=== PATIENT | male | born 1980 | race Caucasian/White ===

== ENCOUNTER 2016-09-04 10:04 | Emergency (ER) | payer BC, OTHER ==
[~2016-09-04] VITALS: Ht 177.8 cm; Wt 128.8 kg
[~2016-09-04 10:04] MED LIST: ALBU2.5V7 AEROSOL; AZIT250T6 PO; CEFT1FRO3 IV; HYDR-4074 PO; HYDR2VIA2 IV; ONDA4VIA23 IV
[2016-09-04 10:07] VITALS: Ht 177.8 cm; Wt 128.8 kg
--- OUTSIDE RECORDS SUMMARY | 2016-09-04 10:08 | XMS REPORT | Referral Summary ---
Author Author [facility] Organization [facility] Address Unknown Phone Unavailable Care Team Providers Care Golf Ball Marker Name Role Phone Camilla Geiger Primary Care Physician [phone] Encounter [facility] [id number] Date(s): 06/20/16 - 06/20/16 [facility] [address] [place] [address]- Discharge Diagnosis: Adult-onset obesity Discharge Diagnosis: Current smoker Discharge Diagnosis: CORRINA (generalized anxiety disorder) Discharge Diagnosis: Benign essential hypertension Discharge Diagnosis: Encounter for smoking cessation counseling Discharge Diagnosis: Snoring Discharge Disposition: 01-Home or Self Care Attending Physician: Rufino Geiger MD Admitting Physician: Rufino Geiger MD Vital Signs Most recent to 1 oldest [Reference Range]: Blood Pressure 170/90 mmHg [90-140/60-90 mmHg] *HI* (06/20/16 3:27 PM) Problem List Condition Effective Dates Status Health Status Informant Benign essential Active hypertension(Confirm ed) CORRINA (generalized Active anxiety disorder)(Confirmed) Morbid Active patient obesity(Confirmed) Current Active smoker(Confirmed) Snoring(Confirmed) Active Allergies, Adverse Reactions, Alerts Substance Reaction Severity Status PROzac Active Ritalin Active Medications Chantix Continuing Month 1 mg oral tablet 1 mg 1 tabs, Oral, BID, may start in 30 days, # 56 tabs, 1 Refill(s), Pharmacy: [id number], 1 tabs Oral BID,Instr:may start in 30 days Start Date: 06/20/16 Status: Ordered Chantix Starter Pack 0.5 mg-1 mg oral tablet 1 tabs, Oral, BID, as directed on package labeling, # 53 tabs, 0 Refill(s), Pharmacy: [facility] Start Date: 06/20/16 Status: Ordered hydroCHLOROthiazide 25 mg oral tablet 25 mg 1 tabs, Oral, Daily, # 30 tabs, 0 Refill(s), Pharmacy: [facility], 1 tabs Oral Daily Start Date: 06/20/16 Status: Ordered Results Hematology Most recent to 1 oldest [Reference Range]: WBC [4.8-10.8 8.6 10*3/uL 10*3/uL] (06/20/16 3:58 PM) RBC [4.60-6.20] 5.41 (06/20/16 3:58 PM) Hgb [14.0-18.0 16.1 gm/dL gm/dL] (06/20/16 3:58 PM) Hct [42.0-52.0 %] 48.2 % (06/20/16 3:58 PM) MCV [82.0-99.0 fL] 89.1 fL (06/20/16 3:58 PM) MCH [27.0-32.0 pg] 29.8 pg (06/20/16 3:58 PM) MCHC [32.0-36.0 33.4 gm/dL gm/dL] (06/20/16 3:58 PM) RDW [11.5-14.5 %] 13.2 % (06/20/16 3:58 PM) Platelet [150-400 248 10*3/uL 10*3/uL] (06/20/16 3:58 PM) MPV [8.8-14.8 fL] 10.9 fL (06/20/16 3:58 PM) Immature 0.2 % Granulocytes (06/20/16 3:58 PM) [0.0-1.0 %] Neutrophils [51-75 58 % %] (06/20/16 3:58 PM) Lymphocytes [20-46 29 % %] (06/20/16 3:58 PM) Monocytes [4-11 %] 9 % (06/20/16 3:58 PM) Eosinophils [0-4 %] 4 % (06/20/16 3:58 PM) Basophils [0-2 %] 1 % (06/20/16 3:58 PM) Neutro Absolute 4.98 [1.90-7.00] (06/20/16 3:58 PM) Lymph Absolute 2.49 [0.80-3.30] (06/20/16 3:58 PM) Larue Absolute 0.76 [0.30-1.00] (06/20/16 3:58 PM) Eos Absolute 0.31 [0.00-0.50] (06/20/16 3:58 PM) Baso Absolute 0.04 [0.00-0.20] (06/20/16 3:58 PM) Chemistry Most recent to 1 oldest [Reference Range]: Sodium Lvl [135-144 141 mEq/L mEq/L] (06/20/16 3:58 PM) Potassium Lvl 4.4 mEq/L [3.5-5.2 mEq/L] (06/20/16 3:58 PM) Chloride [99-111 103 mEq/L mEq/L] (06/20/16 3:58 PM) CO2 [23-31 mEq/L] 27 mEq/L (06/20/16 3:58 PM) AGAP [3-20] 11 (06/20/16 3:58 PM) BUN [9-21 mg/dL] 14 mg/dL (06/20/16 3:58 PM) Glucose Lvl [70-99 91 mg/dL mg/dL] (06/20/16 3:58 PM) Creatinine Lvl 1.13 mg/dL [0.72-1.25 mg/dL] (06/20/16 3:58 PM) eGFR [>60 mL/min] >60 mL/min 1 (06/20/16 3:58 PM) Calcium Lvl 9.7 mg/dL 2 [8.4-10.2 mg/dL] (06/20/16 3:58 PM) Albumin Lvl [3.5-5.0 4.0 gm/dL gm/dL] (06/20/16 3:58 PM) Total Protein 6.5 gm/dL [6.1-7.7 gm/dL] (06/20/16 3:58 PM) Globulin [1.8-4.0 2.5 gm/dL gm/dL] (06/20/16 3:58 PM) ALT [0-55 U/L] 36 U/L (06/20/16 3:58 PM) AST [5-34 U/L] 25 U/L (06/20/16 3:58 PM) Alk Phos [40-150 93 U/L U/L] (06/20/16 3:58 PM) Bili Total [0.2-1.2 0.3 mg/dL mg/dL] (06/20/16 3:58 PM) TSH with Reflex Free 1.15 T4 [0.35-4.94] (06/20/16 3:58 PM) 1Result Comment: Multiply eGFR results by 1.21 for race. 2Result Comment: Please note reference range change effective 06/17/2016. Immunizations No data available for this section Procedures No data available for this section Social History Social History Type Response Smoking Status Current every day smoker; Type: Cigarettes; Tobacco use per day: 1 Pack Assessment and Plan Extracted from: Title: Office Visit Note Author: Rufino Geiger MD Date: 06/20/16 Assessment/Plan Adult-onset obesity Diet and exercise as tolerated and feasible. Consider medication when interested. Benign essential hypertension HCTZ 25mg po daily. The patient had an elevated blood pressure reading and is to monitor their bp and call with a report if consistently > 140/90. Lab pending. RTC in 30 days or sooner prn. Ordered: CBC w/ Differential Comprehensive Metabolic Panel TSH with Reflex Free T4 Current smoker Samples of the new medication were provided as a courtesy. Side effects were discussed and follow up was recommended. Chantix starter kit discussed and voucher provided. Encounter for smoking cessation counseling See above. Ten minutes of counseling discussed. CORRINA (generalized anxiety disorder) We discussed several options for treatment for this condition. The patient declined any changes or other treatments at this time. Snoring To [facility] Sleep [facility] forevaluation. A work/school note was offered and deferred by the patient.
--- OUTSIDE RECORDS SUMMARY | 2016-09-04 10:08 | XMS REPORT | Continuity of Care Document ---
Author Author [facility] Organization [facility] Address Unknown Phone Unavailable Support Name Relationship Address Phone GEORGE GARCIA MD Caregiver [address] [place] [address] [place] [phone] NAMAN [employer]ODS Next Of Kin [address] [place] [address] Insurance Providers Payer Name Policy Number Subscriber Name Relationship [facility] [id number] Perez Alberts 18 Self Problems Medical Problems Problem Onset Date Status Sprain of medial collateral ligament of left knee Unknown Active Sprain of medial collateral ligament of left knee Unknown Active Medications Medication Dose Route Sig Days/Qty Instructions Order Date Discontinued Date Status [No Known Meds] 12/27/13 Active Diclofenac Sodium 1 Tab PO TWICE A DAY 30 Qty 12/27/13 Active Social History Social History Problem Response Recorded Date/Time Smoking Status Current every day smoker 12/27/2013 8:25am When did patient START smoking? SINCE AGE 14 12/27/2013 8:25am Hospital Discharge Instructions No hospital discharge instructions. Plan of Care No plan of care. Functional Status Query Response Date Recorded Physical Hygiene Self December 27, 2013 8:25am Disabilities None December 27, 2013 8:25am Devices Used None December 27, 2013 8:25am Dressing Self December 27, 2013 8:25am Ambulation Self December 27, 2013 8:25am Diet Self December 27, 2013 8:25am Mental Status Alert December 27, 2013 9:42am Disabilities None December 27, 2013 8:25am Devices Used None December 27, 2013 8:25am Physical Hygiene Self December 27, 2013 8:25am Dressing Self December 27, 2013 8:25am Ambulation Self December 27, 2013 8:25am Diet Self December 27, 2013 8:25am Allergies, Adverse Reactions, Alerts Allergen Type Severity Reaction Status Last Updated Fluoxetine Allergy Intermediate ARTHRITIS Active 12/27/13 Methylphenidate Allergy Severe LOSS OF LARGE MUSCLE CONTROL Active Immunizations No immunization records. Vital Signs Acute Vital Signs Vital Response Date/Time Temperature (Fahrenheit) 97.5 deg F (96.8 - 99.1) Temperature (Calculated Celsius) 36.72569 degrees C (36.0 - 37.3) Pulse Rate (adult) 83 bpm (60 - 100) Respiratory Rate 18 breaths/min (10 - 20) O2 Sat by Pulse Oximetry 96 % (90 - 100) Blood Pressure 161/85 mm Hg Height 5 ft 10 in Weight 296 lb Body Mass Index 42.0 kg/m^2 Results No known relevant diagnostic tests, laboratory data and/or discharge summary. Procedures No known history of procedures. Encounters Encounter Location Date/Time Departed Emergency Room [facility] 12/27/13 8:20am Recent Diagnosis
--- OUTSIDE RECORDS SUMMARY | 2016-09-04 10:08 | XMS REPORT | Continuity of Care Document ---
Author Author [facility] Organization [facility] Address Unknown Phone Unavailable Allergies Active Description Code Type Severity Reaction Onset Reported/Identified Relationship to Patient Clinical Status Yes fluoxetine fluoxetine Drug Allergy Unknown ARTHRITIS 07/29/2015 Yes methylphenidate methylphenidate Drug Allergy Unknown MUSCLE WEAKNESS 07/29/2015 Medications Problems Date Dx Coded Attending Type Code Diagnosis Diagnosed By 07/29/2015 David Campbell MD D72.829 ELEVATED WHITE BLOOD CELL COUNT, UNSPECIFIED 07/29/2015 David Campbell MD E66.9 OBESITY, UNSPECIFIED 07/29/2015 David Campbell MD F17.200 NICOTINE DEPENDENCE, UNSPECIFIED, UNCOMPLICATED 07/29/2015 David Campbell MD F32.9 MAJOR DEPRESSIVE DISORDER, SINGLE EPISODE , UNSPECI 07/29/2015 David Campbell MD J90 PLEURAL EFFUSION, NOT ELSEWHERE CLASSIFIED 07/29/2015 David Campbell MD J94.8 OTHER SPECIFIED PLEURAL CONDITIONS 07/29/2015 David Campbell MD J96.01 ACUTE RESPIRATORY FAILURE WITH HYPOXIA 07/29/2015 David Campbell MD J96.02 ACUTE RESPIRATORY FAILURE WITH HYPERCAPNIA 07/29/2015 David Campbell MD J98.11 ATELECTASIS 07/29/2015 David Campbell MD S20.211A CONTUSION OF RIGHT FRONT WALL OF THORAX, INITIAL E 07/29/2015 David Campbell MD W18.09XA STRIKING AGAINST OTH OBJECT W SUBSEQUENT FALL, INI 07/29/2015 David Campbell MD Z68.41 BODY MASS INDEX (BMI) 40.0-44.9, ADULT Procedures Code Description Performed By Performed On 1M0R32H DRAINAGE OF RIGHT PLEURA WITH DRAINAGE DEVICE, PER Oscar Sherwood DO 07/29/2015 [id number] INTRODUCE OTH THROMBOLYTIC IN PERIPH VEIN, PERC David Campbell MD 07/29/2015 [id number] ASSISTANCE WITH RESPIRATORY VENTILATION, <24 HRS, David Campbell MD 07/29/2015 Results Test Result Range CBC - 07/30/15 05:52 MEAN CELL HGB 29.8 pg 27.0-33.0 MEAN CELL HGB CONCENTRATION 32.7 g/dL 32.0-37.0 MEAN CELL VOLUME 91.1 fl 80.0-100.0 RED BLOOD CELL 4.63 m/cumm 4.00-6.00 RED CELL DISTRIBUTION WIDTH 13.9 % 11.0- 15.6 WHITE BLOOD CELL 18.5 k/cumm 5.0-10.0 HEMOGLOBIN 13.8 gm/dL 14.0-18.0 HEMATOCRIT 42.2 % 40.0-54.0 PLATELET COUNT 310 k/cumm 150-400 METABOLIC PANEL, BASIC - 07/30/15 05:52 POTASSIUM 4.6 mmol/L 3.5-5.3 EST GFR (MDRD) > 60 mL/min > 59 ANION GAP 5 mmol/L 5-15 EST CrCl (CG) > 60 mL/min > 59 GLUCOSE 170 mg/dL 70-99 CALCIUM 8.7 mg/dL 8.5-10.1 BLOOD UREA NITROGEN 16 mg/dL 7-20 CREATININE 1.0 mg/dL 0.7-1.3 SODIUM 136 mmol/L 135-148 CHLORIDE 100 mmol/L 98-110 CARBON DIOXIDE 31 mmol/L 21-32 GRAM STAIN SPUTUM - SPUTUM CULTURE - 07/30/15 16:45 Microbiology ARTERIAL BLOOD GAS - 07/30/15 23:30 ABG BASE EXCESS 0.2 meq/L -3.0-3.0 ABG BICARBONATE 27.2 meq/L 23.0-28.0 ABG PCO2 53 mm Hg 34-45 ABG PH 7.33 7.35-7.45 ABG PO2 87 mm Hg 75-100 ABG O2 SATURATION 96 % 93-100 GLUCOSE (POC) - 07/31/15 00:02 GLUCOSE (POC) 158 mg/dL 70-99 CBC W/DIFF - 07/31/15 00:31 EOSINOPHIL # 0.3 k/cumm 0.1-0.5 EOSINOPHIL % 1 % 2-4 GRANULOCYTE # 22.5 k/cumm 2.0-9.0 LYMPHOCYTE # 0.3 k/cumm 1.0-4.0 LYMPHOCYTE % 1 % 20-30 MEAN CELL HGB 29.7 pg 27.0-33.0 MEAN CELL HGB CONCENTRATION 33.0 g/dL 32.0-37.0 MEAN CELL VOLUME 90.0 fl 80.0-100.0 MONOCYTE # 2.8 k/cumm 0.1-1.0 MONOCYTE % 11 % 4-6 RED BLOOD CELL 5.01 m/cumm 4.00-6.00 RED CELL DISTRIBUTION WIDTH 14.2 % 11.0- 15.6 WHITE BLOOD CELL 25.9 k/cumm 5.0-10.0 HEMOGLOBIN 14.9 gm/dL 14.0-18.0 HEMATOCRIT 45.1 % 40.0-54.0 PLATELET COUNT 366 k/cumm 150-400 MANUAL DIFF(R) - 07/31/15 00:31 BAND % 1 % 0-10 DIFFERENTIAL MANUAL RBC MORPH NORMAL SEGMENTED NEUTROPHIL % 86 % 50-70 METABOLIC PANEL, BASIC - 07/31/15 00:31 POTASSIUM 5.0 mmol/L 3.5-5.3 EST GFR (MDRD) > 60 mL/min > 59 ANION GAP 9 mmol/L 5-15 EST CrCl (CG) > 60 mL/min > 59 GLUCOSE 155 mg/dL 70-99 CALCIUM 9.0 mg/dL 8.5-10.1 BLOOD UREA NITROGEN 21 mg/dL 7-20 CREATININE 1.3 mg/dL 0.7-1.3 SODIUM 136 mmol/L 135-148 CHLORIDE 99 mmol/L 98-110 CARBON DIOXIDE 28 mmol/L 21-32 BC REFLEX LACTIC ACID - 07/31/15 00:57 LACTIC ACID 1.5 mmol/L 0.5-2.0 BLOOD CULTURE - 07/31/15 00:58 Microbiology BLOOD CULTURE - 07/31/15 00:58 Microbiology GRAM STAIN SPUTUM - SPUTUM CULTURE - 07/31/15 01:12 Microbiology CBC - 07/31/15 04:31 MEAN CELL HGB 30.2 pg 27.0-33.0 MEAN CELL HGB CONCENTRATION 33.7 g/dL 32.0-37.0 MEAN CELL VOLUME 89.5 fl 80.0-100.0 RED BLOOD CELL 4.77 m/cumm 4.00-6.00 RED CELL DISTRIBUTION WIDTH 14.1 % 11.0- 15.6 WHITE BLOOD CELL 33.8 k/cumm 5.0-10.0 HEMOGLOBIN 14.4 gm/dL 14.0-18.0 HEMATOCRIT 42.7 % 40.0-54.0 PLATELET COUNT 368 k/cumm 150-400 METABOLIC PANEL, [facility] - 07/31/15 04:31 POTASSIUM 5.1 mmol/L 3.5-5.3 EST GFR (MDRD) 57 mL/min > 59 ANION GAP 9 mmol/L 5-15 EST CrCl (CG) > 60 mL/min > 59 GLUCOSE 150 mg/dL 70-99 CALCIUM 9.0 mg/dL 8.5-10.1 BLOOD UREA NITROGEN 25 mg/dL 7-20 CREATININE 1.4 mg/dL 0.7-1.3 SODIUM 135 mmol/L 135-148 CHLORIDE 100 mmol/L 98-110 CARBON DIOXIDE 26 mmol/L -32 MAGNESIUM - 07/31/15 04:31 MAGNESIUM 2.1 mg/dL 1.8-2.4 METABOLIC PANEL, [facility] - 07/31/15 13:32 POTASSIUM 4.5 mmol/L 3.5-5.3 EST GFR (MDRD) > 60 mL/min > 59 ANION GAP 8 mmol/L 5-15 EST CrCl (CG) > 60 mL/min > 59 GLUCOSE 184 mg/dL 70-99 CALCIUM 8.4 mg/dL 8.5-10.1 BLOOD UREA NITROGEN 20 mg/dL 7-20 CREATININE 1.1 mg/dL 0.7-1.3 SODIUM 133 mmol/L 135-148 CHLORIDE 99 mmol/L 98-110 CARBON DIOXIDE 26 mmol/L -32 CBC - 08/01/15 04:27 MEAN CELL HGB 30.3 pg 27.0-33.0 MEAN CELL HGB CONCENTRATION 34.0 g/dL 32.0-37.0 MEAN CELL VOLUME 89.0 fl 80.0-100.0 RED BLOOD CELL 4.19 m/cumm 4.00-6.00 RED CELL DISTRIBUTION WIDTH 13.8 % 11.0- 15.6 WHITE BLOOD CELL 16.2 k/cumm 5.0-10.0 HEMOGLOBIN 12.7 gm/dL 14.0-18.0 HEMATOCRIT 37.3 % 40.0-54.0 PLATELET COUNT 345 k/cumm 150-400 METABOLIC PANEL, [facility] - 08/01/15 04:27 POTASSIUM 4.0 mmol/L 3.5-5.3 EST GFR (MDRD) > 60 mL/min > 59 ANION GAP 5 mmol/L 5-15 EST CrCl (CG) > 60 mL/min > 59 GLUCOSE 125 mg/dL 70-99 CALCIUM 8.4 mg/dL 8.5-10.1 BLOOD UREA NITROGEN 18 mg/dL 7-20 CREATININE 0.8 mg/dL 0.7-1.3 SODIUM 135 mmol/L 135-148 CHLORIDE 101 mmol/L 98-110 CARBON DIOXIDE 29 mmol/L -32 CBC - 08/02/15 03:30 MEAN CELL HGB 29.9 pg 27.0-33.0 MEAN CELL HGB CONCENTRATION 33.5 g/dL 32.0-37.0 MEAN CELL VOLUME 89.2 fl 80.0-100.0 RED BLOOD CELL 4.55 m/cumm 4.00-6.00 RED CELL DISTRIBUTION WIDTH 14.2 % 11.0- 15.6 WHITE BLOOD CELL 13.8 k/cumm 5.0-10.0 HEMOGLOBIN 13.6 gm/dL 14.0-18.0 HEMATOCRIT 40.6 % 40.0-54.0 PLATELET COUNT 440 k/cumm 150-400 METABOLIC PANEL, BASIC - 08/02/15 03:30 POTASSIUM 4.4 mmol/L 3.5-5.3 EST GFR (MDRD) > 60 mL/min > 59 ANION GAP 4 mmol/L 5-15 EST CrCl (CG) > 60 mL/min > 59 GLUCOSE 121 mg/dL 70-99 CALCIUM 8.3 mg/dL 8.5-10.1 BLOOD UREA NITROGEN 15 mg/dL 7-20 CREATININE 0.9 mg/dL 0.7-1.3 SODIUM 137 mmol/L 135-148 CHLORIDE 101 mmol/L 98-110 CARBON DIOXIDE 32 mmol/L -32 MAGNESIUM - 08/02/15 03:30 MAGNESIUM 2.0 mg/dL 1.8-2.4 METABOLIC PANEL, BASIC - 08/03/15 05:30 POTASSIUM 4.3 mmol/L 3.5-5.3 EST GFR (MDRD) > 60 mL/min > 59 ANION GAP 5 mmol/L 5-15 EST CrCl (CG) > 60 mL/min > 59 GLUCOSE 109 mg/dL 70-99 CALCIUM 7.9 mg/dL 8.5-10.1 BLOOD UREA NITROGEN 15 mg/dL 7-20 CREATININE 0.8 mg/dL 0.7-1.3 SODIUM 138 mmol/L 135-148 CHLORIDE 99 mmol/L 98-110 CARBON DIOXIDE 34 mmol/L 21-32 MAGNESIUM - 08/03/15 05:30 MAGNESIUM 2.2 mg/dL 1.8-2.4 CBC - 08/04/15 05:34 MEAN CELL HGB 29.4 pg 27.0-33.0 MEAN CELL HGB CONCENTRATION 32.6 g/dL 32.0-37.0 MEAN CELL VOLUME 90.2 fl 80.0-100.0 RED BLOOD CELL 4.08 m/cumm 4.00-6.00 RED CELL DISTRIBUTION WIDTH 14.2 % 11.0- 15.6 WHITE BLOOD CELL 9.1 k/cumm 5.0-10.0 HEMOGLOBIN 12.0 gm/dL 14.0-18.0 HEMATOCRIT 36.8 % 40.0-54.0 PLATELET COUNT 525 k/cumm 150-400 METABOLIC PANEL, BASIC - 08/04/15 05:34 POTASSIUM 3.7 mmol/L 3.5-5.3 EST GFR (MDRD) > 60 mL/min > 59 ANION GAP 7 mmol/L 5-15 EST CrCl (CG) > 60 mL/min > 59 GLUCOSE 112 mg/dL 70-99 CALCIUM 7.9 mg/dL 8.5-10.1 BLOOD UREA NITROGEN 13 mg/dL 7-20 CREATININE 0.7 mg/dL 0.7-1.3 SODIUM 140 mmol/L 135-148 CHLORIDE 101 mmol/L 98-110 CARBON DIOXIDE 32 mmol/L 21-32 PLATELET COUNT - 08/04/15 15:30 PLATELET COUNT 538 k/cumm 150-400 PROTHROMBIN TIME WITH INR - 08/04/15 15:30 INTERNATIONAL NORMAL RATIO 1.0 0.9-1.1 PROTHROMBIN TIME 10.6 sec 9.3-12.2 PARTIAL THROMBOPLASTIN TIME - 08/04/15 15:30 PARTIAL THROMBOPLASTIN TIME 29 sec 23-39 CBC - 08/05/15 09:45 MEAN CELL HGB 28.8 pg 27.0-33.0 MEAN CELL HGB CONCENTRATION 31.7 g/dL 32.0-37.0 MEAN CELL VOLUME 90.8 fl 80.0-100.0 RED BLOOD CELL 4.45 m/cumm 4.00-6.00 RED CELL DISTRIBUTION WIDTH 13.8 % 11.0- 15.6 WHITE BLOOD CELL 10.8 k/cumm 5.0-10.0 HEMOGLOBIN 12.8 gm/dL 14.0-18.0 HEMATOCRIT 40.4 % 40.0-54.0 PLATELET COUNT 624 k/cumm 150-400 METABOLIC PANEL, BASIC - 08/05/15 09:45 POTASSIUM 4.2 mmol/L 3.5-5.3 EST GFR (MDRD) > 60 mL/min > 59 ANION GAP 6 mmol/L 5-15 EST CrCl (CG) > 60 mL/min > 59 GLUCOSE 121 mg/dL 70-99 CALCIUM 8.5 mg/dL 8.5-10.1 BLOOD UREA NITROGEN 13 mg/dL 7-20 CREATININE 0.9 mg/dL 0.7-1.3 SODIUM 138 mmol/L 135-148 CHLORIDE 99 mmol/L 98-110 CARBON DIOXIDE 33 mmol/L 21-32 GRAM STAIN - 08/05/15 10:28 Microbiology CALCIUM IONIZED - 08/06/15 05:09 CALCIUM IONIZED 4.5 mg/dL 4.5-5.3 CBC - 08/06/15 05:09 MEAN CELL HGB 28.8 pg 27.0-33.0 MEAN CELL HGB CONCENTRATION 31.8 g/dL 32.0-37.0 MEAN CELL VOLUME 90.3 fl 80.0-100.0 RED BLOOD CELL 3.93 m/cumm 4.00-6.00 RED CELL DISTRIBUTION WIDTH 13.7 % 11.0- 15.6 WHITE BLOOD CELL 8.3 k/cumm 5.0-10.0 HEMOGLOBIN 11.3 gm/dL 14.0-18.0 HEMATOCRIT 35.5 % 40.0-54.0 PLATELET COUNT 546 k/cumm 150-400 CBC - 08/07/15 04:42 MEAN CELL HGB 28.9 pg 27.0-33.0 MEAN CELL HGB CONCENTRATION 31.8 g/dL 32.0-37.0 MEAN CELL VOLUME 91.0 fl 80.0-100.0 RED BLOOD CELL 3.87 m/cumm 4.00-6.00 RED CELL DISTRIBUTION WIDTH 13.8 % 11.0- 15.6 WHITE BLOOD CELL 5.4 k/cumm 5.0-10.0 HEMOGLOBIN 11.2 gm/dL 14.0-18.0 HEMATOCRIT 35.2 % 40.0-54.0 PLATELET COUNT 535 k/cumm 150-400 METABOLIC PANEL, BASIC - 08/07/15 04:42 POTASSIUM 4.1 mmol/L 3.5-5.3 EST GFR (MDRD) > 60 mL/min > 59 ANION GAP 5 mmol/L 5-15 EST CrCl (CG) > 60 mL/min > 59 GLUCOSE 95 mg/dL 70-99 CALCIUM 7.7 mg/dL 8.5-10.1 BLOOD UREA NITROGEN 12 mg/dL 7-20 CREATININE 0.8 mg/dL 0.7-1.3 SODIUM 142 mmol/L 135-148 CHLORIDE 104 mmol/L 98-110 CARBON DIOXIDE 33 mmol/L 21-32 Encounters ACCT No. Visit Date/Time Discharge Status Pt. Type Provider Facility Loc./Unit Complaint [id number] 07/29/2015 18:50:00 2015 12:30:00 DIS Inpatient Shannan YOUSIF, David Alisia [facility] [id number]
--- OUTSIDE RECORDS SUMMARY | 2016-09-04 10:08 | XMS REPORT | Referral Summary ---
Author Author [facility] Organization [facility] [place] Address Unknown Phone Unavailable Care Team Providers Care Forest Manager Name Role Phone Camilla Geiger Primary Care Physician [phone] Encounter Date(s): 07/07/16 - 07/07/16 [facility] [place] [address] [place], [place] [address] Discharge Diagnosis: Benign essential hypertension Discharge Diagnosis: Excessive daytime sleepiness Discharge Diagnosis: Witnessed apneic spells Discharge Diagnosis: Morbid obesity Discharge Disposition: 01-Home or Self Care Attending Physician: Juan Francisco Barrett MD Admitting Physician: Juan Francisco Barrett MD Vital Signs Most recent to 1 oldest [Reference Range]: Peripheral Pulse 91 bpm Rate [60-100 bpm] (07/07/16 9:13 AM) Blood Pressure 148/74 mmHg [90-140/60-90 mmHg] *HI* (07/07/16 9:13 AM) SpO2 96 % (07/07/16 9:13 AM) Problem List Condition Effective Dates Status Health [...] days, # 56 tabs, 1 Refill(s), Pharmacy: [facility], 1 tabs Oral BID,Instr:may start in 30 days Start Date: 06/20/16 Status: Ordered Chantix Starter Pack 0.5 mg-1 mg oral tablet 1 tabs, Oral, BID, as directed on package labeling, # 53 tabs, 0 Refill(s), Pharmacy: [id number] Start Date: 06/20/16 Status: Ordered hydroCHLOROthiazide 25 mg oral tablet 25 mg 1 tabs, Oral, Daily, # 30 tabs, 0 Refill(s), Pharmacy: [id number], 1 tabs Oral Daily Start Date: 06/20/16 Status: Ordered Results No data available for this section Immunizations No data available for this section Procedures No data available for this section Social History Social History Type Response Smoking Status Current every day smoker; Type: Cigarettes; Tobacco use per day: 1 Pack Assessment and Plan Extracted from: Title: Office Visit Note Author: Juan Francisco Barrett MD Date: 07/07/16 Assessment/Plan 1.Excessive daytime sleepiness Obstructive Sleep Apnea - -The pathophysiology of obstructive sleep apnea was discussed in detail. I explained that the treatment of choice for mild, moderate, and severe ANEESH is the positive pressure device, and revealed about the untreated consequences. The patient was advised to avoid driving and other hazardous activities if feeling tired, drowsy or otherwise impaired. - Current symptoms/Signs/PMH daytime sleepiness, snoring, witnessed apneas, BMI >35, Neck size >40cm, male gender, hypertension - We will obtain a HOME sleep study. -If patient is Dx w/ ANEESH patient would be interested PAP THERAPY Patient will benotified about results of sleep study via followup appoint. 2.Witnessed apneic spells see above 3.Benign essential hypertension The pathophysiology of HTN in relation to ANEESH discussed in detail with patient. We also discussed increased risk of ANEESH in regard to CVA, CHF,and NV. 4.Morbid obesity counseled on the importance of proper diet and routine exercise. A decrease in weight and BMI may lessen the severity of sleep apnea. If there is a 10% or more change in weight status, this may require PAP machine pressure adjustment. We discussed improving nutrition and making exercise plans.
--- NOTE | 2016-09-04 10:18 | NUR ---
PROVIDER DR PAZ TO SEE PT
--- NOTE | 2016-09-04 10:28 | ERPDOC ---
Departure Disposition Decision Date: Sep 04, 2016 Disposition Decision Time: 11:40 Disposition: 01 DISCHARGED HOME, SELF-CARE Impression Impression Impression: Primary Impression: Plantar fasciitis Additional Impressions: Ankle pain Laterality: left Chronicity: unspecified Qualified Codes: M25.572 - Pain in left ankle and joints of left foot Foot pain, left Severity: Mild Condition: Improved Seen By: Physician only Referrals: [facility] 2 Days Patient Instructions: Plantar Fasciitis (ED), Leg Pain (ED) Problems/Meds/Labs Reviewed?: Yes Medications reviewed and manag: Yes Follow up care ordered?: Yes Mental Status: Alert, Oriented Scripts Hydrocodone/Acetaminophen ([place] 7.5-325 Tablet) 7.5-325 Tablet 1 TAB PO Q4HR Y for PAIN for 2 Days, #12 TAB 0 Refills Prov: COTY PAZ Radha DO 09/04/16 HPI - General Medical General Chief Complaint: Lower Extremity Pain Stated Complaint: L FOOT PAIN Time Seen by Provider: 10:12 Source: patient Exam Limitations: no limitations HPI - General Medical Initial Comments 36-year-old male presents to the emergency department with a chief complaint of pain in the left foot. Patient notes pain to the under side of his left foot. Pain is located in the arch region. No radiation. Patient states that the pain began 2-3 days ago has been persistent in nature since onset. He does not note any known trauma or injury. Patient does note that the pain is worse in the morning and improves with ambulation and stretching of the foot. Patient describes his pain as moderate. Pain is dull. He denies any other complaints or associated symptoms. Patient was at home when the symptoms began. Symptoms have been persistent in nature since onset. Occurred At: home Onset: Gradual Allergies: Coded Allergies: methylphenidate (Verified Allergy, Severe, LOSS OF LARGE MUSCLE CONTROL, ) fluoxetine (Verified Allergy, Intermediate, ARTHRITIS, 07/28/15) Past History Patient Surgical History Patient denies surgical history. Past Medical History Metabolic: hypertension Surgical History Denies Surgeries Family History Family History: Negative Vaccines Hx Influenza Vaccination: No Hx Pneumococcal Vaccination: No Social History Smoking Status: Current every day smoker # of Packs/Tins per Day: 1 Substance Use Type: does not use Alcohol Intake: none Sexuality: female partner, other Review of Systems Constitutional Constitutional: DENIES: chills, fever Eyes General: DENIES: erythema, exudate Lids/Accessories: DENIES: erythema, swelling Vision: DENIES: acuity, blurring ENMT Ears: DENIES: drainage, erythema Hearing: DENIES: hearing loss Balance: DENIES: ataxia, falling to one side Sinuses: DENIES: congestion, pain Nose: DENIES: nosebleeds, pain Mouth/Throat: DENIES: painful swallowing, sore throat Teeth: DENIES: pain Jaw: DENIES: pain Cardiovascular Cardiac: DENIES: chest pain, dyspnea on exertion Rhythm/Rate: DENIES: irregular beat, palpitations Vascular: DENIES: pedal edema, unilateral swelling Pulmonary Respiratory: DENIES: cough, dyspnea, pleuritic chest pain, sputum GI Upper Abdomen: DENIES: nausea, pain, vomiting Lower Abdomen: DENIES: diarrhea, pain General: DENIES: dysuria, frequency Musculoskeletal General: pain, tenderness Integumentary Skin: DENIES: itching, rash Neurological General: DENIES: headache, numbness, weakness Psychiatric Psychiatric: DENIES: emotional instability, suicidal ideation/attempt Endocrine Endocrine: DENIES: polydipsia, polyphagia Hematologic/Lymphatic Hematologic/Lymphatic: DENIES: frequent nosebleeds, lymphadenopathy Allergic/Immunological Allergic/Immunoligical: DENIES: allergic reactions, hives Physical Exam General General Nourishment: well nourished, well developed, appears stated age, no acute distress, adult General Body Habitus: well groomed Vitals and Pain First Documented Vital Signs Date Time Temp Pulse Resp B/P Pulse Ox O2 Delivery O2 Flow Rate FiO2 09/04/16 10:07 98.0 90 18 156/81 94 Room Air Weight: Kilograms: 128.800 Height (feet): 5 Height (inches): 10.00 Triage Pain Scale: RN VS reviewed by Provider: Yes Normal Exams: Head: Normocephalic w/o trauma Eyes: Pupils are PERRLA w/ EOMI, No scleral icterus, irritation, or foreign bodies noted ENMT: No facial trauma, nasal exudates, pharyngeal erythema, or exudates are noted Dental: No fractured, loose, or missing teeth noted Neck: Full range of motion, without adenopathy, JVD, bruits or thyromegaly Chest/Resp: Clear all [place], with good airflow, and symmetry bilaterally CV: Regular rate and rhythm, without murmur or gallop, Pulses 2+ all extremities, capillary refill, <2 seconds all ext., no pedal edema noted Abdomen: Bowel sounds positive, soft, non-tender, non-distended, no hepatosplenomegaly, masses or bruits noted Lymphatic: No lymphadenopathy, or lymphedema noted Musculoskeletal: No tenderness, or deformity noted, good range of motion, all extremities Integumentary: No rashes, hives, or bruising noted, hair and nails, without abnormality Neurologic: Patient is alert, and oriented, cranial nerves, motor/sensory/ cerebellar, exams w/o gross deficits, to observation Psychiatric: Patient exhibits, appropriate attention, emotion and affect Musculoskeletal (brief) Comments L Foot - Diffusely tender to palpation at the insertion of the plantar fascia on the plantar surface of the foot. No focal bony tenderness. Pulses intact. Sensation intact. Capillary refill less than 2. No erythema. No edema. No fibular head tenderness. No other tenderness in the left lower extremity. Gait is normal. All other extremities are unremarkable. Differential Diagnoses Considering: Other (Sprain / Strain / Fracture / Plantar Fascitis) Procedures Splinting Procedure Splint : Site: LLE Pre-placement NV: FOUND: cap refill < 3 sec, good movement, good sensation Hand-Made Type: orthoglass Splint: Short Leg Posterior Post-placement NV: FOUND: cap refill < 3 sec, good movement, good sensation Applied by: MD/DO Progress Results/Orders Orders Procedure Category Date Status Time Foot Left 3 Views RAD 09/04/16 Taken 10:24 Ankle Left 3 View RAD 09/04/16 Taken 10:24 Crutches EDM 09/04/16 Transmitted 11:38 Hydrocodone/Acetaminophen PHA 09/04/16 Complete ([place] 7.5/325 11:45 Medications Current ED Medications Acetaminophen/ Hydrocodone Bitart ([place] 7.5/325) 1 tab O ONCE PO Last administered on 09/04/16t 11:51; Start 09/04/16 at 11:45; Stop 09/04/16 at 11:46 ; Status DC Progress Progress Imaging is discussed in detail with the patient and family and questions are answered. Patient is given analgesic pain medication with improvement of symptoms. Patient is placed in a short-leg posterior splint by myself with good alignment. Patient's distal neurovascular intact post-application of splint. Patient is provided with crutches and instructed in the use. Prescription for [place] was provided. Patient is to continue using Motrin as directed. Patient may have a small joint effusion noted on plain film x-ray. Patient effusion is not believed to be infectious in nature. Patient is afebrile. Patient has full range of motion of the foot and ankle. There is no erythema. No edema. There is no sign of infectious etiology. Patient is provided with strict return precautions and will follow up with his primary care physician as directed. Patient verbalizes agreement and understanding. Patient is to return to the emergency department if his condition worsens or changes in any manner. Patient is in agreement with the current plan of management. Xray Xray : Xray: Foot L Interpretation: Normal, Faxed Report (degenerative changes. No acute fracture. Left ankle: Degenerative changes. No acute fracture. Potential joint effusion.) COTY PAZ DO Sep 04, 2016 10:28
--- NOTE | 2016-09-04 10:30 | NUR ---
DOPPLER DOPPLER TO BILAT FEET FOR PULSE CHECK. STRONG PALPABLE AND PULSES PER DOPPLER NOTED
[2016-09-04] MEDS ORDERED: LISI10TA7 PO (10:34)
[2016-09-04] MEDS ORDERED: AMOX500C2 PO (10:34)
[2016-09-04] MEDS ORDERED: HYDR25TA PO (10:34)
--- NOTE | 2016-09-04 10:35 | NUR ---
RADIOLOGY RADIOLOGY IN ROOM FOR PORTABLE FLIMS
--- OUTSIDE RECORDS SUMMARY | 2016-09-04 11:00 | XMS REPORT | Continuity of Care Document ---
Author Author [facility] Organization [facility] Address Unknown Phone Unavailable Support Name Relationship Address Phone GEORGE GARCIA MD Caregiver [address] [place] [address] [place] [phone] [employer] Next Of Kin [address] [place] [address] Insurance Providers Payer Name Policy Number Subscriber Name Relationship [facility] [id number] Perez Alberts 17 Self Problems Medical Problems [...] F (96.8 - 99.1) Temperature (Calculated Celsius) [phone] degrees C (36.0 - 37.3) Pulse Rate [...] Encounters Encounter Location Date/Time Departed Emergency Room [facility] 12/27/13 8:20am Recent Diagnosis
--- OUTSIDE RECORDS SUMMARY | 2016-09-04 11:00 | XMS REPORT | Continuity of Care Document ---
Author Author [facility] Organization [facility] Address Unknown Phone Unavailable Allergies Active Description [...] Procedures Code Description Performed By Performed On [id number] DRAINAGE OF RIGHT PLEURA WITH DRAINAGE DEVICE, PER Oscar Sherwood DO 07/29/2015 [id number] INTRODUCE OTH THROMBOLYTIC IN PERIPH VEIN, PERC David Campbell MD 07/29/2015 [id number] ASSISTANCE WITH RESPIRATORY VENTILATION, <24 HRS, David [...] PLATELET COUNT 368 k/cumm 150-400 METABOLIC PANEL, [facility] - 07/31/15 04:31 POTASSIUM 5.1 mmol/L [...] 04:31 MAGNESIUM 2.1 mg/dL 1.8-2.4 METABOLIC PANEL, [facility] - 07/31/15 13:32 POTASSIUM 4.5 mmol/L [...] PLATELET COUNT 345 k/cumm 150-400 METABOLIC PANEL, [facility] - 08/01/15 04:27 POTASSIUM 4.0 mmol/L [...] Status Pt. Type Provider Facility Loc./Unit Complaint [id number] 07/29/2015 18:50:00 2015 12:30:00 DIS Inpatient Shannan YOUSIF, David Alisia [facility] [id number]
[2016-09-04] MEDS ORDERED: HYDR-347 PO (11:42)
[2016-09-04 11:54] VITALS: BP 157/85; PULSE 85; RESP 16; TEMP 98.1; O2SAT 94
--- NOTE | 2016-09-04 11:54 | NUR ---
DISMISS PT AMBULATORY TO LOBBY, DEMONSTRATING APPROPRIATE GAIT WITH CRUTCHES. ACCOMPANIES.
--- NOTE | 2016-09-05 08:17 | DI ---
Indication: ITS.REASON: Left ankle pain PROCEDURE: ANKLE LEFT 3 VIEW: Encounter: Initial Comparison: None Findings: There is no acute fracture, dislocation or malalignment identified. Mild degenerative change in the tibiotalar joint. Calcaneal spurring. Osteophyte formation at the talonavicular joint. Impression: No acute osseous abnormality. There is a preliminary report by [facility]. .
--- NOTE | 2016-09-05 08:18 | DI ---
Indication: ITS.REASON: Left foot pain PROCEDURE: FOOT LEFT 3 VIEWS: Encounter: Initial Comparison: None Findings: There is no acute fracture, dislocation or malalignment identified. Degenerative change in the tibiotalar and talonavicular joints. Calcaneal spurring. Impression: No acute osseous abnormality. There is a preliminary report by [facility]. .
== END 2016-09-04 11:54 | disposition home or self-care (01) ==
LOC: ED 10:04
DX: M72.2 Plantar fascial fibromatosis (principal); M25.572 Pain in left ankle and joints of left foot